=== PATIENT | female | born 1955 | race Hispanic/Latino ===

== ENCOUNTER 2016-10-12 17:55 | Observation (INO) | payer MEDICARE, MEDICAID ==
[~2016-10-12] VITALS: Ht 162.6 cm; Wt 79.6 kg
[~2016-10-12 17:55] MED LIST: AMITIZA24 MCG PO; GLYBURIDE5 MG PO; INVOKANA; JANUVIA100 MG PO; LEVEMIR1000 UNITS SC; LORAZEPAM0.5 MG PO; LYRICA25 MG PO; NAPROSYN500 MG PO; NORCO1 TA1 PO; OMEPRAZOLE20 M2 PO; PANTOPRAZOLE SO40 MG PO; PERCOCET1 TA4 PO; RESTASIS0.05 % OP; TRICOR145 MG PO; VICTOZA18 MG/3 ML SC; ZESTRIL/PRINIV2.5 MG PO; ZOFRAN ODT8 MG PO
[2016-10-12] MEDS ORDERED: GABAPENTIN100 MG PO (18:20)
[2016-10-12] MEDS ORDERED: FLUOXETINE10 M2 PO (18:21)
[2016-10-12] MEDS ORDERED: AMITIZA24 MCG PO (18:22)
[2016-10-12] MEDS ORDERED: ASPIRIN81 MG PO (18:22)
[2016-10-12] MEDS ORDERED: VENLAFAXINE H37.5 MG PO (18:23)
[2016-10-12] MEDS ORDERED: FENOFIBRATE145 MG PO (18:23)
[2016-10-12] MEDS ORDERED: BRILINTA90 MG PO (18:24)
[2016-10-12] MEDS ORDERED: PANTOPRAZOLE SO40 MG PO (18:24)
[2016-10-12] MEDS ORDERED: GLIMEPIRIDE2 MG PO (18:25)
[2016-10-12] MEDS ORDERED: LISINOPRIL5 MG PO (18:25)
[2016-10-12 19:14] LABS: HEMATOCRIT 35.6 % (37.0-47.0); HEMOGLOBIN 12.3 g/dl (12.0-16.0); IMMATURE GRANULOCYTES 0.4 % (0.0-1.0); MEAN CELL VOLUME 86.6 fL CALC (80.0-100.0); MEAN CORPUSCULAR HGB 29.9 pG CALC (26.0-32.0); MEAN CORPUSCULAR HGB CONC 34.6 g/L CALC (32.0-36.0); NEUT# 3.81 thou/uL (2.00-7.15); RED BLOOD COUNT 4.11 mill/uL (4.20-5.60); RED CELL DISTRI WIDTH 12.4 % (11.5-15.5)
[2016-10-12 19:27] LABS: ALBUMIN 4.3 g/dL (3.2-5.0); ALKALINE PHOSPHATASE 48 u/l (38-126); AMYLASE 85 u/l (30-110); ANION GAP 16 (6-22 (CALC)); BILIRUBIN, TOTAL 0.4 mg/dL (0.0-1.4); BUN 13 mg/dL (8-23); BUN/CREATININE RATIO 17 (12-20 (CALC)); CALCIUM 8.9 mg/dL (8.4-10.2); CARBON DIOXIDE 22 mmol/l (22-30); CHLORIDE 106 mmol/l (95-108); CREATININE 0.7 mg/dL (0.5-1.0); GFR > 60 ML/MIN (>=60 (CALC)); GFR FOR AFR.AMER. > 60 ML/MIN (>=60 (CALC)); GLUCOSE 261 mg/dL (82-115); LIPASE 295 u/l (23-300); POTASSIUM 4.1 mmol/l (3.5-5.1); SGOT/AST 32 u/l (9-36); SGPT/ALT 35 u/l (11-66); SODIUM 139 mmol/l (137-146); TOTAL PROTEIN 7.4 g/dL (6.3-8.2)
[2016-10-12 19:36] LABS: ACT PARTIAL THROMBO TIME 23.8 SECONDS (20.0-32.5); PROTHROMBIN TIME 10.8 SECONDS (9.0-12.5)
[2016-10-12 19:38] LABS: MYOGLOBIN 20 ng/mL (0 - 62)
[2016-10-12 19:57] LABS: URINE BILIRUBIN - DIPSTICK NEGATIVE (NEGATIVE); URINE BLOOD DIPSTICK NEGATIVE (NEGATIVE); URINE CLARITY CLEAR; URINE COLOR YELLOW; URINE GLUCOSE - DIPSTICK >=1000 mg/dL (NEGATIVE); URINE KETONE NEGATIVE (NEGATIVE); URINE LEUK ESTERASE NEGATIVE (NEGATIVE); URINE NITRITE - DIPSTICK NEGATIVE (Negative); URINE PROTEIN - DIPSTICK NEGATIVE (NEG-TRACE); URINE UROBILINOGEN - DIPSTICK 0.2 E.U./dL (0.2)
[2016-10-12 21:45] VITALS: BP 125/61
[2016-10-13 00:15] VITALS: BP 106/55
[2016-10-13 04:27] VITALS: BP 115/64
[2016-10-13 06:29] LABS: CHOLESTEROL HDL RATIO 6.5 (<4.4 (CALC))
[2016-10-13 08:08] VITALS: BP 126/54
[2016-10-13] MEDS ORDERED: METFORMIN500 MG PO (12:20)
[2016-10-13] MEDS ORDERED: LIPITOR20 MG PO (12:20)
[2016-10-13 12:59] VITALS: BP 149/79
== END 2016-10-13 13:44 | disposition home or self-care (01) ==
LOC: ENPENDDIS → ED 17:55 → ED-I 20:00 → ED 20:41 → MS2 20:42
PROVIDERS: Emergency Medicine; Internal Medicine; ADMIT Internal Medicine; ATTEND Internal Medicine
DX: R07.9 Chest pain, unspecified (principal); I11.9 Hypertensive heart disease without heart failure; E11.65 Type 2 diabetes mellitus with hyperglycemia; I25.10 Atherosclerotic heart disease of native coronary artery without angina pectoris; K21.9 Gastro-esophageal reflux disease without esophagitis; E78.5 Hyperlipidemia, unspecified; E11.40 Type 2 diabetes mellitus with diabetic neuropathy, unspecified; F32.9 Major depressive disorder, single episode, unspecified; F41.9 Anxiety disorder, unspecified; H53.8 Other visual disturbances; Z95.5 Presence of coronary angioplasty implant and graft; Z79.84 Long term (current) use of oral hypoglycemic drugs

== ENCOUNTER 2017-01-20 05:39 | Emergency (ER) | payer MEDICARE, MEDICAID ==
[~2017-01-20] VITALS: Ht 162.6 cm; Wt 80.0 kg
[~2017-01-20 05:39] MED LIST changes: +ASPIRIN81 MG PO; +BRILINTA90 MG PO; +FENOFIBRATE145 MG PO; +FLUOXETINE10 M2 PO; +GABAPENTIN100 MG PO; +GLIMEPIRIDE2 MG PO; +LIPITOR20 MG PO; +LISINOPRIL5 MG PO; +METFORMIN500 MG PO; +VENLAFAXINE H37.5 MG PO
[2017-01-20] MEDS ORDERED: JARDIANCE25 MG PO (05:55)
[2017-01-20] MEDS ORDERED: ORPHENADRINE100 MG PO (06:52)
[2017-01-20] MEDS ORDERED: PERCOCET 5/325M1 TAB PO (06:52)
[2017-01-20 07:13] VITALS: BP 133/85
== END 2017-01-20 07:45 | disposition home or self-care (01) ==
LOC: ED 05:39
DX: S46.912A Strain of unspecified muscle, fascia and tendon at shoulder and upper arm level, left arm, initial encounter (principal)

== ENCOUNTER 2017-03-19 06:58 | Emergency (ER) | payer MEDICARE, MEDICAID ==
[~2017-03-19] VITALS: Ht 162.6 cm; Wt 85.0 kg
[~2017-03-19 06:58] MED LIST changes: +JARDIANCE25 MG PO; +ORPHENADRINE100 MG PO; +PERCOCET 5/325M1 TAB PO
[2017-03-19] MEDS ORDERED: EC-NAPROSYN500 MG PO (07:26)
[2017-03-19] MEDS ORDERED: LORTAB 5/3255 MG PO (07:26)
[2017-03-19] MEDS ORDERED: FLEXERIL PO (07:26)
[2017-03-19] MEDS ORDERED: METFORMIN500 MG PO (07:37)
[2017-03-19 07:39] VITALS: BP 136/77
== END 2017-03-19 08:05 | disposition home or self-care (01) ==
LOC: ED 06:58
DX: M43.6 Torticollis (principal)

== ENCOUNTER 2017-06-09 21:42 | Emergency (ER) | payer MEDICARE, MEDICAID ==
[~2017-06-09] VITALS: Ht 162.6 cm; Wt 76.2 kg
[~2017-06-09 21:42] MED LIST changes: +EC-NAPROSYN500 MG PO; +FLEXERIL PO; +LORTAB 5/3255 MG PO
[2017-06-09 22:45] LABS: HEMATOCRIT 37.3 % (37.0-47.0); HEMOGLOBIN 12.5 g/dl (12.0-16.0); IMMATURE GRANULOCYTES 0.5 % (0.0-1.0); MEAN CELL VOLUME 90.1 fL CALC (80.0-100.0); MEAN CORPUSCULAR HGB 30.2 pG CALC (26.0-32.0); MEAN CORPUSCULAR HGB CONC 33.5 g/L CALC (32.0-36.0); NEUT# 6.63 thou/uL (2.00-7.15); RED BLOOD COUNT 4.14 mill/uL (4.20-5.60); RED CELL DISTRI WIDTH 12.5 % (11.5-15.5)
[2017-06-09 22:51] LABS: URINE BILIRUBIN - DIPSTICK NEGATIVE (NEGATIVE); URINE BLOOD DIPSTICK NEGATIVE (NEGATIVE); URINE COLOR YELLOW; URINE GLUCOSE - DIPSTICK >=1000 mg/dL (NEGATIVE); URINE KETONE NEGATIVE (NEGATIVE); URINE LEUK ESTERASE NEGATIVE (NEGATIVE); URINE NITRITE - DIPSTICK NEGATIVE (Negative); URINE PROTEIN - DIPSTICK NEGATIVE (NEG-TRACE); URINE SPECIFIC GRAVITY <=1.005; URINE UROBILINOGEN - DIPSTICK 0.2 E.U./dL (0.2)
[2017-06-09 22:52] LABS: URINE CLARITY SL CLOUDY
[2017-06-09 23:03] LABS: ALBUMIN 4.5 g/dL (3.2-5.0); ALKALINE PHOSPHATASE 60 u/l (38-126); ANION GAP 18 (6-22 (CALC)); BILIRUBIN, TOTAL 0.4 mg/dL (0.0-1.4); BUN 22 mg/dL (8-23); BUN/CREATININE RATIO 25 (12-20 (CALC)); CARBON DIOXIDE 23 mmol/l (22-30); CHLORIDE 100 mmol/l (95-108); CREATININE 0.9 mg/dL (0.5-1.0); GFR > 60 ML/MIN (>=60 (CALC)); GFR FOR AFR.AMER. > 60 ML/MIN (>=60 (CALC)); POTASSIUM 4.3 mmol/l (3.5-5.1); SGOT/AST 39 u/l (9-36); SGPT/ALT 28 u/l (11-66); SODIUM 137 mmol/l (137-146); TOTAL PROTEIN 7.2 g/dL (6.3-8.2)
[2017-06-10 00:28] VITALS: BP 133/62
== END 2017-06-10 00:27 | disposition home or self-care (01) ==
LOC: ED 21:42
PROVIDERS: Emergency Medicine
DX: E11.65 Type 2 diabetes mellitus with hyperglycemia (principal); I10 Essential (primary) hypertension; E78.00 Pure hypercholesterolemia, unspecified

== ENCOUNTER 2017-07-30 03:34 | Observation (INO) | payer MEDICARE, MEDICAID ==
[~2017-07-30] VITALS: Ht 162.6 cm; Wt 76.4 kg
--- NOTE | 2017-07-30 03:35 | NUR ---
PATIENT IMMEDIATELY TO ROOM 6 VIA WHEELCHAIR. UNDRESSED INTO A GOWN. PLACED ON MONITOR. AWAITING MD YI.
--- NOTE | 2017-07-30 03:36 | NUR ---
PT. TO ROOM 6 VIA W/C AND C/O LEFT SIDED CP THAT STARTED APPROX. 90 MIN. AGO. SKIN WARM AND DRY TO TOUCH, COLOR WNL, RESP. EVEN AND UNLABORED. BILATERAL LUNG BOLAÑOS ARE CTA, NO EDEMA NOTED TO BLE.
[2017-07-30] MEDS ORDERED: LEVEMIR100 UNIT/M SC (04:13)
--- NOTE | 2017-07-30 04:24 | NUR ---
IV PAIN MED, PO ASA, AND SL NITROGLYCERIN GIVEN PER MD ORDER.
--- NOTE | 2017-07-30 04:25 | NUR ---
IN ROOM TO DISCUSS CLINICAL FINDINGS WITH PT. VERBALIZED UNDERSTANDING.
--- NOTE | 2017-07-30 04:39 | NUR ---
D/C instructions given with verbalization of understanding. Pt. discharged home in stable condition. PT. INSTRUCTED TO FOLLOW UP WITH RANDY CASTREJON, VERBALIZED UNDERSTANDING. PT. DISCHARGED VIA AMBULATORY TO [facility] C/O.
[2017-07-30 05:00] LABS: HEMATOCRIT 37.2 % (37.0-47.0); HEMOGLOBIN 12.6 g/dl (12.0-16.0); IMMATURE GRANULOCYTES 0.2 % (0.0-1.0); MEAN CELL VOLUME 89.4 fL CALC (80.0-100.0); MEAN CORPUSCULAR HGB 30.3 pG CALC (26.0-32.0); MEAN CORPUSCULAR HGB CONC 33.9 g/L CALC (32.0-36.0); NEUT# 3.24 thou/uL (2.00-7.15); RED BLOOD COUNT 4.16 mill/uL (4.20-5.60); RED CELL DISTRI WIDTH 12.6 % (11.5-15.5)
--- NOTE | 2017-07-30 05:00 | NUR ---
PT. STATES HER CP IS NOW REDUCED TO A 4 ON A SCALE OF 1-10.
[2017-07-30 05:16] LABS: ALBUMIN 4.3 g/dL (3.2-5.0); ALKALINE PHOSPHATASE 64 u/l (38-126); AMYLASE 68 u/l (30-110); ANION GAP 22 (6-22 (CALC)); BILIRUBIN, TOTAL 0.4 mg/dL (0.0-1.4); BUN 18 mg/dL (8-23); BUN/CREATININE RATIO 16 (12-20 (CALC)); CARBON DIOXIDE 23 mmol/l (22-30); CHLORIDE 98 mmol/l (95-108); CREATININE 1.2 mg/dL (0.5-1.0); GFR 46 ML/MIN (>=60 (CALC)); GFR FOR AFR.AMER. 55 ML/MIN (>=60 (CALC)); LIPASE 196 u/l (23-300); POTASSIUM 4.4 mmol/l (3.5-5.1); SGOT/AST 34 u/l (9-36); SGPT/ALT 43 u/l (11-66); SODIUM 139 mmol/l (137-146); TOTAL PROTEIN 7.5 g/dL (6.3-8.2)
[2017-07-30 05:17] LABS: ACT PARTIAL THROMBO TIME 25.5 SECONDS (20.0-32.5); INTERNATIONAL NORMALIZED RATIO 1.1 RATIO (0.7-1.3); PROTHROMBIN TIME 11.9 SECONDS (9.0-12.5)
[2017-07-30 05:28] LABS: MYOGLOBIN 30 ng/mL (0 - 62)
--- NOTE | 2017-07-30 05:30 | NUR ---
RESTING QUIETLY ON STRETCHER, AT SIDE, NO C/O PAIN OR DISCOMFORT OFFERED.
--- NOTE | 2017-07-30 06:09 | NUR ---
IN ROOM TO DISCUSS CLINICAL FINDINGS WITH PT. VERBALIZED UNDERSTANDING.
[2017-07-30 06:12] LABS: URINE BILIRUBIN - DIPSTICK NEGATIVE (NEGATIVE); URINE BLOOD DIPSTICK NEGATIVE (NEGATIVE); URINE CLARITY SL CLOUDY; URINE COLOR YELLOW; URINE GLUCOSE - DIPSTICK >=1000 mg/dL (NEGATIVE); URINE KETONE NEGATIVE (NEGATIVE); URINE LEUK ESTERASE SMALL (NEGATIVE); URINE NITRITE - DIPSTICK NEGATIVE (Negative); URINE PROTEIN - DIPSTICK NEGATIVE (NEG-TRACE); URINE UROBILINOGEN - DIPSTICK 0.2 E.U./dL (0.2)
[2017-07-30 06:14] LABS: URINE RBC 0-2 RBC/hpf (0-5); URINE SQUAMOUS EPITHELIAL CELL MODERATE EPI/hpf (0-FEW)
[2017-07-30 06:15] LABS: URINE BACTERIA FEW hpf; URINE MUCUS FEW hpf (NONE-FEW)
--- NOTE | 2017-07-30 06:24 | NUR ---
Admission Note Report Given to: ELIANE JAQUEZ Transported by: Wheelchair X Stretcher Transported with: X Nurse Transporter X Patent IV X O2 X Learn To Swim Instructor
--- NOTE | 2017-07-30 06:35 | NUR ---
PT. TAKEN TO MS VIA STRETCHER, NO C/O.
[2017-07-30 06:40] VITALS: BP 145/81
--- NOTE | 2017-07-30 07:27 | NUR ---
REPORT RECEIVED FROM LEONID DEL RIO. PT SITTING UPRIGHT IN BED. REPORTS LEFT UPPER CHEST PAIN, RADIATING TO BACK, 5 ON SCALE OF 0-10. PAIN SHARP IN NATURE, MUCH RELIEVED SINCE ARRIVAL TO ED. PLAN OF CARE DISCUSSED. REPORTING OF CONCERNS ENCOURAGED. CALL LIGHT REVIEWED AND IN REACH. PT STATES UNDERSTANDING.
--- NOTE | 2017-07-30 08:18 | NUR ---
PT REPORTS CHEST PAIN NOW DISSIPATED AND ONLY RETURNS WITH MOVEMENT.
[2017-07-30 11:30] VITALS: BP 134/76
[2017-07-30 12:35] VITALS: BP 136/79
--- NOTE | 2017-07-30 12:41 | NUR ---
PT REPORTS SEVERE, SHARP LEFT UPPER CHEST PAIN, 9 ON SCALE OF 0-10. PT SITTING UPRIGHT IN BED. NO SOB. EATING LUNCH AND TALKING WITH VISITOR. EKG OBTAINED, NO CHANGE FROM PREVIOUS. DR. MONTERROSO NOTIFIED. ORDER FOR D-DIMER AND NITRO AND MORPHINE PRN. VSS. NO SOB. NITRO SL ADMINISTERED. PT REPORTS RELIEF OF PAIN WITHIN 5 MINUTES OF ADMINISTRATION. WILL CONTINUE TO MONITOR.
[2017-07-30 16:15] VITALS: BP 122/71
--- NOTE | 2017-07-30 17:19 | NUR ---
PT DENIES CHEST PAIN. REQUESTING SHOWER AT THIS TIME. PT ASSISTED WITH SHOWER SET UP.
[2017-07-30 18:01] LABS: CHOLESTEROL HDL RATIO 5.6 (<4.4 (CALC))
--- NOTE | 2017-07-30 18:50 | NUR ---
RECEIVED CHANGE OF SHIFT REPORT FROM LEONID TRIPLETT. PATIENT ALERT AND ORIENTED AND LYING IN BED. NO VOICED COMPLAINT. NO APPARENT ACUTE DISTRESS NOTED. WILL CONTINUE TO MONITOR.
[2017-07-30 18:55] VITALS: BP 117/75
[2017-07-31] VITALS (7 sets, daily range): BP systolic 109–140; BP diastolic 55–83
--- NOTE | 2017-07-31 | NUR ---
PATIENT RESTING QUIETLY WITH EYES CLOSED AND APPEARS TO BE ASLEEP. RESP EVEN AND NON-LABORED. NO APPARENT ACUTE DISTRESS NOTED. WILL CONTINUE TO MONITOR.
--- NOTE | 2017-07-31 04:00 | NUR ---
PATIENT SLEPT WELL DURING THE NIGHT. NO APPARENT ACUTE CHANGES NOTED IN PT'S CONDITION.
--- NOTE | 2017-07-31 07:07 | NUR ---
REPORT RECEIVED FROM LEONID MORALES. PT SITTING UPRIGHT IN BED. PT DENIES CHEST PAIN. REPORTS "THAT WAS THE BEST NIGHT I'VE EVER HAD." REPORTING OF CONCENRS ENCOURAGED. CALL LIGHT REVIEWED AND IN REACH. PT STATES UNDERSTANDING.
--- NOTE | 2017-07-31 09:22 | NUR ---
PT TO CT DEPARTMENT AT THIS TIME.
--- NOTE | 2017-07-31 12:05 | NUR ---
PT REPORTS SEVERE CHEST PAIN. 9 ON PAIN SCALE, WHICH STARTED AFTER COMPLETING BREAKFAST MEAL. VSS. NO SOB. NITRO SL ADMINISTERED. PT REPORTS RELIEF OF PAIN TO 5 ON PAIN SCALE WITHIN 5 MINUTES. PT REQUESTS COLA TO ASSIST WITH BELCHING. AFTER COLA PT REPORTS COMPLETE RELIEF OF PAIN.
--- NOTE | 2017-07-31 18:45 | NUR ---
RECEIVED CHANGE OF SHIFT REPORT FROM LEONID TRIPLETT. PATIENT ALERT AND ORIENTED AND LYING IN BED. VISITOR AT BEDSIDE. NO VOICED COMPLAINTS AT THIS TIME. NO APPARENT ACUTE DISTRESS NOTED. WILL CONTINUE TO MONITOR.
--- NOTE | 2017-07-31 19:04 | NUR ---
DR MONTERROSO SEEING PATIENT IN ROOM AT THIS TIME.
--- NOTE | 2017-07-31 20:30 | NUR ---
Discharge instructions given. Patient verbalizes understanding of same. Discharged in stable condition via wheelchair to Home with spouse. vital signs 97.0-69-18 BP 114/70. All belongings sent with patient.
== END 2017-07-31 20:30 | disposition home or self-care (01) ==
LOC: ED 03:34 → ED-I 05:30 → ED 06:24 → MS2 06:25
PROVIDERS: Emergency Medicine; ADMIT Hospitalist; ATTEND Hospitalist
DX: R07.89 Other chest pain (principal); I25.10 Atherosclerotic heart disease of native coronary artery without angina pectoris; I10 Essential (primary) hypertension; E11.65 Type 2 diabetes mellitus with hyperglycemia; K21.9 Gastro-esophageal reflux disease without esophagitis; E78.5 Hyperlipidemia, unspecified; N17.9 Acute kidney failure, unspecified; R82.71 Bacteriuria; Z95.5 Presence of coronary angioplasty implant and graft; Z79.4 Long term (current) use of insulin
CPT/HCPCS: Q9967; S0164

== ENCOUNTER 2018-06-07 12:32 | Emergency (ER) | payer MEDICARE, MEDICAID ==
[~2018-06-07] VITALS: Ht 162.6 cm; Wt 79.1 kg
[~2018-06-07 12:32] MED LIST changes: +LEVEMIR100 UNIT/M SC
[2018-06-07 13:17] LABS: HEMATOCRIT 37.8 % (37.0-47.0); HEMOGLOBIN 12.8 g/dl (12.0-16.0); IMMATURE GRANULOCYTES 0.4 % (0.0-5.0); MEAN CELL VOLUME 88.7 fL CALC (80.0-100.0); MEAN CORPUSCULAR HGB CONC 33.9 g/L CALC (32.0-36.0); NEUT# 4.62 thou/uL (2.00-7.15); RED BLOOD COUNT 4.26 mill/uL (4.20-5.60); RED CELL DISTRI WIDTH 13.4 % (11.5-15.5)
[2018-06-07 13:35] LABS: ALBUMIN 4.3 g/dL (3.2-5.0); ALKALINE PHOSPHATASE 55 u/l (38-126); ANION GAP 14 (6-22 (CALC)); BILIRUBIN, TOTAL 0.4 mg/dL (0.0-1.4); BUN 13 mg/dL (8-23); BUN/CREATININE RATIO 17 (12-20 (CALC)); CARBON DIOXIDE 24 mmol/l (22-30); CHLORIDE 107 mmol/l (95-108); CREATININE 0.8 mg/dL (0.5-1.0); GFR > 60 ML/MIN (>=60 (CALC)); GFR FOR AFR.AMER. > 60 ML/MIN (>=60 (CALC)); LIPASE 150 u/l (23-300); SGOT/AST 23 u/l (9-36); SODIUM 141 mmol/l (137-146); TOTAL PROTEIN 7.3 g/dL (6.3-8.2)
[2018-06-07] MEDS ORDERED: ULTRAM50 M1 PO (14:19)
[2018-06-07] MEDS ORDERED: ZITHROMAX250 MG PO (14:19)
[2018-06-07] MEDS ORDERED: TESSALON PER100 MG PO (14:19)
[2018-06-07 14:25] VITALS: BP 123/60
[2018-06-07] MEDS ORDERED: PROVENTIL108 MCG/AC IN (14:34)
== END 2018-06-07 14:40 | disposition home or self-care (01) ==
LOC: ED 12:32
PROVIDERS: Emergency Medicine
DX: J40 Bronchitis, not specified as acute or chronic (principal); E11.9 Type 2 diabetes mellitus without complications; I10 Essential (primary) hypertension; K21.9 Gastro-esophageal reflux disease without esophagitis; Z95.5 Presence of coronary angioplasty implant and graft; R07.9 Chest pain, unspecified

== ENCOUNTER 2018-06-20 13:34 | Emergency (ER) | payer MEDICARE, MEDICAID ==
[~2018-06-20] VITALS: Ht 162.6 cm; Wt 70.0 kg
[~2018-06-20 13:34] MED LIST changes: +PROVENTIL108 MCG/AC IN; +TESSALON PER100 MG PO; +ULTRAM50 M1 PO; +ZITHROMAX250 MG PO
[2018-06-20 16:44] LABS: HEMATOCRIT 41.9 % (37.0-47.0); HEMOGLOBIN 13.8 g/dl (12.0-16.0); IMMATURE GRANULOCYTES 0.2 % (0.0-5.0); MEAN CELL VOLUME 90.1 fL CALC (80.0-100.0); MEAN CORPUSCULAR HGB 29.7 pG CALC (26.0-32.0); MEAN CORPUSCULAR HGB CONC 32.9 g/L CALC (32.0-36.0); NEUT# 4.69 thou/uL (2.00-7.15); RED BLOOD COUNT 4.65 mill/uL (4.20-5.60); RED CELL DISTRI WIDTH 13.1 % (11.5-15.5)
[2018-06-20] MEDS ORDERED: TRULICITY1.5 MG/0.5 IM (16:47)
[2018-06-20] MEDS ORDERED: ATORVASTATIN CA40 MG PO (16:52)
[2018-06-20] MEDS ORDERED: BUT/APAP/CAF PO (16:54)
[2018-06-20] MEDS ORDERED: MELOXICAM7.5 MG PO (16:54)
[2018-06-20] MEDS ORDERED: LORTAB 5/3255 MG PO (16:55)
[2018-06-20] MEDS ORDERED: CYCLOBENZAPR5 MG PO (16:55)
[2018-06-20] MEDS ORDERED: ZOLPIDEM5 M1 PO (16:55)
[2018-06-20 17:02] LABS: ALBUMIN 4.8 g/dL (3.2-5.0); ALKALINE PHOSPHATASE 43 u/l (38-126); ANION GAP 17 (6-22 (CALC)); BILIRUBIN, TOTAL 0.8 mg/dL (0.0-1.4); BUN 25 mg/dL (8-23); BUN/CREATININE RATIO 30 (12-20 (CALC)); CARBON DIOXIDE 27 mmol/l (22-30); CHLORIDE 101 mmol/l (95-108); CREATININE 0.8 mg/dL (0.5-1.0); GFR > 60 ML/MIN (>=60 (CALC)); GFR FOR AFR.AMER. > 60 ML/MIN (>=60 (CALC)); LIPASE 105 u/l (23-300); POTASSIUM 3.8 mmol/l (3.5-5.1); SGOT/AST 38 u/l (9-36); SODIUM 141 mmol/l (137-146)
[2018-06-20] MEDS ORDERED: AMOXICILLIN875 MG PO (18:22)
[2018-06-20] MEDS ORDERED: ZOFRAN4 MG/TAB PO (18:22)
[2018-06-20 18:35] VITALS: BP 111/56
== END 2018-06-20 18:35 | disposition home or self-care (01) ==
LOC: ED 13:34
DX: R11.2 Nausea with vomiting, unspecified (principal); J02.9 Acute pharyngitis, unspecified; I10 Essential (primary) hypertension; E11.9 Type 2 diabetes mellitus without complications; Z79.84 Long term (current) use of oral hypoglycemic drugs; Z95.5 Presence of coronary angioplasty implant and graft

== ENCOUNTER → 2018-07-12 | Outpatient (REF) | payer MEDICARE, MEDICAID ==
[~2018-07-12] MED LIST changes: +AMOXICILLIN875 MG PO; +ATORVASTATIN CA40 MG PO; +BUT/APAP/CAF PO; +CYCLOBENZAPR5 MG PO; +MELOXICAM7.5 MG PO; +TRULICITY1.5 MG/0.5 IM; +ZOFRAN4 MG/TAB PO; +ZOLPIDEM5 M1 PO
[2018-07-12 12:42] LABS: URINE BILIRUBIN - DIPSTICK NEGATIVE (NEGATIVE); URINE BLOOD DIPSTICK TRACE-LYSED (NEGATIVE); URINE COLOR YELLOW; URINE GLUCOSE - DIPSTICK >=1000 mg/dL (NEGATIVE); URINE KETONE NEGATIVE (NEGATIVE); URINE LEUK ESTERASE SMALL (Negative); URINE NITRITE - DIPSTICK NEGATIVE (Negative); URINE PROTEIN - DIPSTICK NEGATIVE (NEG-TRACE); URINE SPECIFIC GRAVITY 1.025; URINE UROBILINOGEN - DIPSTICK 0.2 E.U./dL (0.2)
[2018-07-12 12:43] LABS: URINE CLARITY SL CLOUDY
[2018-07-12 12:52] LABS: URINE BACTERIA FEW hpf
[2018-07-12 12:53] LABS: URINE WBC >100 WBC/hpf (0-5)
== END | disposition home or self-care (01) ==
LOC: LABSPEC 12:14 → STRESS 12:14 → NUCMED 16:30
PROVIDERS: ATTEND Nurse Practitioner
DX: N39.41 Urge incontinence (principal); B96.20 Unspecified Escherichia coli [E. coli] as the cause of diseases classified elsewhere; I20.9 Angina pectoris, unspecified

== ENCOUNTER 2019-02-26 14:25 | Emergency (ER) | payer MEDICARE, MEDICAID ==
[~2019-02-26] VITALS: Ht 162.6 cm; Wt 80.0 kg
[~2019-02-26 14:25] MED LIST changes: +PROTONIX40 MG PO
[2019-02-26] MEDS ORDERED: LISINOPRIL2.5 MG PO (14:47)
[2019-02-26] MEDS ORDERED: TRESIBA FL200 UNIT/M SC (14:48)
[2019-02-26] MEDS ORDERED: DULOXETINE HCL30 MG PO (14:49)
[2019-02-26] MEDS ORDERED: METFORMIN500 MG PO (14:50)
[2019-02-26 15:56] LABS: URINE BILIRUBIN - DIPSTICK NEGATIVE (NEGATIVE); URINE BLOOD DIPSTICK NEGATIVE (NEGATIVE); URINE COLOR YELLOW; URINE GLUCOSE - DIPSTICK >=1000 mg/dL (NEGATIVE); URINE KETONE NEGATIVE (NEGATIVE); URINE LEUK ESTERASE NEGATIVE (Negative); URINE NITRITE - DIPSTICK NEGATIVE (Negative); URINE PROTEIN - DIPSTICK NEGATIVE (NEG-TRACE); URINE SPECIFIC GRAVITY 1.015
[2019-02-26 15:57] LABS: URINE CLARITY CLEAR
[2019-02-26 15:58] LABS: BARBITURATES NEGATIVE (NEGATIVE); COCAINE NEGATIVE (NEGATIVE); METHADONE NEGATIVE (NEGATIVE); OXCYCODONE NEGATIVE (NEGATIVE); TETRAHYDROCANNABIONOL NEGATIVE (NEGATIVE); TRICYLIC ANTIDEPRESSANTS NEGATIVE (NEGATIVE)
[2019-02-26] MEDS ORDERED: NAPROXEN375 MG PO (16:14)
[2019-02-26] MEDS ORDERED: PREDNISONE10 MG PO (16:14)
[2019-02-26] MEDS ORDERED: FLEXERIL5 M1 PO (16:14)
[2019-02-26 16:25] VITALS: BP 129/74
== END 2019-02-26 16:25 | disposition home or self-care (01) ==
LOC: ED 14:25
DX: M54.5 Low back pain (principal); R25.2 Cramp and spasm; I10 Essential (primary) hypertension; E11.9 Type 2 diabetes mellitus without complications; Z79.4 Long term (current) use of insulin

== ENCOUNTER 2019-04-19 05:26 | Emergency (ER) | payer MEDICARE, MEDICAID ==
[~2019-04-19] VITALS: Ht 162.6 cm; Wt 75.0 kg
[~2019-04-19 05:26] MED LIST changes: +DULOXETINE HCL30 MG PO; +FLEXERIL5 M1 PO; +LISINOPRIL2.5 MG PO; +NAPROXEN375 MG PO; +PREDNISONE10 MG PO; +TRESIBA FL200 UNIT/M SC
[2019-04-19] MEDS ORDERED: VOLTAREN - GENE75 MG PO (07:02)
[2019-04-19] MEDS ORDERED: ORPHENADRINE100 MG PO (07:02)
[2019-04-19 08:05] VITALS: BP 124/71
== END 2019-04-19 08:45 | disposition home or self-care (01) ==
LOC: ED 05:26
DX: S16.1XXA Strain of muscle, fascia and tendon at neck level, initial encounter (principal); E11.9 Type 2 diabetes mellitus without complications; I10 Essential (primary) hypertension; X50.3XXA Overexertion from repetitive movements, initial encounter; Y93.89 Activity, other specified; Z95.5 Presence of coronary angioplasty implant and graft; Z79.4 Long term (current) use of insulin

== ENCOUNTER 2019-05-17 15:13 | Observation (INO) | payer MEDICARE, MEDICAID ==
[~2019-05-17] VITALS: Ht 162.6 cm; Wt 74.6 kg
[~2019-05-17 15:13] MED LIST changes: +VOLTAREN - GENE75 MG PO
[2019-05-17 16:40] LABS: ETHYL ALCOHOL 0 mg/dl (0-30); LIPASE 220 u/l (23-300)
[2019-05-17 16:43] LABS: ACT PARTIAL THROMBO TIME 25.3 SECONDS (20.0-32.5); PROTHROMBIN TIME 10.5 SECONDS (9.0-12.5)
[2019-05-17 17:18] LABS: HEMATOCRIT 39.9 % (37.0-47.0); HEMOGLOBIN 13.5 g/dl (12.0-16.0); IMMATURE GRANULOCYTES 0.3 % (0.0-5.0); MEAN CELL VOLUME 86.6 fL CALC (80.0-100.0); MEAN CORPUSCULAR HGB 29.3 pG CALC (26.0-32.0); MEAN CORPUSCULAR HGB CONC 33.8 g/L CALC (32.0-36.0); NEUT# 4.42 thou/uL (2.00-7.15); RED BLOOD COUNT 4.61 mill/uL (4.20-5.60); RED CELL DISTRI WIDTH 13.1 % (11.5-15.5)
[2019-05-17 17:24] LABS: ALBUMIN 4.3 g/dL (3.2-5.0); ALKALINE PHOSPHATASE 67 u/l (38-126); ANION GAP 14 (6-22 (CALC)); BILIRUBIN, TOTAL 0.5 mg/dL (0.0-1.4); BUN 14 mg/dL (8-23); BUN/CREATININE RATIO 25 (12-20 (CALC)); CARBON DIOXIDE 24 mmol/l (22-30); CHLORIDE 106 mmol/l (95-108); CREATININE 0.6 mg/dL (0.5-1.0); GFR > 60 ML/MIN (>=60 (CALC)); GFR FOR AFR.AMER. > 60 ML/MIN (>=60 (CALC)); POTASSIUM 4.1 mmol/l (3.5-5.1); SGOT/AST 27 u/l (9-36); SODIUM 140 mmol/l (137-146); TOTAL PROTEIN 7.3 g/dL (6.3-8.2)
[2019-05-17 17:28] LABS: BARBITURATES NEGATIVE (NEGATIVE); COCAINE NEGATIVE (NEGATIVE); METHADONE NEGATIVE (NEGATIVE); OXCYCODONE NEGATIVE (NEGATIVE); TETRAHYDROCANNABIONOL NEGATIVE (NEGATIVE); TRICYLIC ANTIDEPRESSANTS NEGATIVE (NEGATIVE)
[2019-05-17 20:20] VITALS: BP 115/57
[2019-05-18 00:10] VITALS: BP 91/45
[2019-05-18 03:38] VITALS: BP 118/59
[2019-05-18 10:45] VITALS: BP 108/62
[2019-05-18] MEDS ORDERED: FIORICET PO (14:54)
== END 2019-05-18 17:56 | disposition home or self-care (01) ==
LOC: ED 15:13 → ED-I 17:45 → ED 17:56 → ED-I 17:57 → MS2 17:57
PROVIDERS: ADMIT Internal Medicine; ATTEND Internal Medicine
DX: R07.89 Other chest pain (principal); G43.909 Migraine, unspecified, not intractable, without status migrainosus; F32.9 Major depressive disorder, single episode, unspecified; I10 Essential (primary) hypertension; I25.10 Atherosclerotic heart disease of native coronary artery without angina pectoris; E11.40 Type 2 diabetes mellitus with diabetic neuropathy, unspecified; E78.5 Hyperlipidemia, unspecified; E11.69 Type 2 diabetes mellitus with other specified complication; Z79.4 Long term (current) use of insulin; Z95.5 Presence of coronary angioplasty implant and graft; Z63.8 Other specified problems related to primary support group
CPT/HCPCS: G0378

== ENCOUNTER 2019-06-24 | Emergency (ER) | payer MEDICARE, MEDICAID ==
[~2019-06-24] MED LIST changes: +FIORICET PO
[2019-06-24] MEDS ORDERED: TESSALON PERLE100 MG PO ×2 (13:30→14:02)
[2019-06-24] MEDS ORDERED: VENTOLIN HFA IN (13:30)
== END 2019-06-24 13:48 | disposition home or self-care (01) ==
DX: R05 Cough (principal); R10.31 Right lower quadrant pain; E11.9 Type 2 diabetes mellitus without complications; I10 Essential (primary) hypertension; Z79.4 Long term (current) use of insulin

== ENCOUNTER 2019-09-30 20:21 | Observation (INO) | payer MEDICARE, MEDICAID ==
[~2019-09-30] VITALS: Ht 162.6 cm; Wt 78.2 kg
[~2019-09-30 20:21] MED LIST changes: +TESSALON PERLE100 MG PO; +VENTOLIN HFA IN
--- NOTE | 2019-09-30 20:35 | NUR ---
PATIENT TO ROOM 9 FOR BEDSIDE TRIAGE. AWAITING MD YI.
[2019-09-30 20:44] LABS: HEMATOCRIT 38.4 % (37.0-47.0); IMMATURE GRANULOCYTES 0.4 % (0.0-5.0); MEAN CELL VOLUME 86.3 fL CALC (80.0-100.0); MEAN CORPUSCULAR HGB 29.2 pG CALC (26.0-32.0); MEAN CORPUSCULAR HGB CONC 33.9 g/dL CAL (32.0-36.0); NEUT# 4.58 thou/uL (2.00-7.15); RED BLOOD COUNT 4.45 mill/uL (4.20-5.60); RED CELL DISTRI WIDTH 13.2 % (11.5-15.5)
--- NOTE | 2019-09-30 20:55 | NUR ---
RESTING QUIETLY AT THIS TIME, C/O PAIN, PATIENT MEDICATED PER PHYSICIAN ORDER, NO S/S OF DISTRESS NOTED, RESPIRATIONS EVEN AND UNLABORED, AWAITING RADIOLOGY.
[2019-09-30 21:16] LABS: ALBUMIN 4.2 g/dL (3.2-5.0); ALKALINE PHOSPHATASE 64 u/l (38-126); AMYLASE 107 u/l (30-110); ANION GAP 14 (6-22 (CALC)); BILIRUBIN, TOTAL 0.4 mg/dL (0.0-1.4); BUN 11 mg/dL (8-23); BUN/CREATININE RATIO 18 (12-20 (CALC)); CHLORIDE 106 mmol/l (95-108); CREATININE 0.6 mg/dL (0.5-1.0); GFR > 60 ML/MIN (>=60 (CALC)); GFR FOR AFR.AMER. > 60 ML/MIN (>=60 (CALC)); LIPASE 166 u/l (23-300); POTASSIUM 3.7 mmol/l (3.5-5.1); SGOT/AST 32 u/l (9-36); SODIUM 138 mmol/l (137-146); TOTAL PROTEIN 7.4 g/dL (6.3-8.2)
[2019-09-30 21:17] LABS: D-DIMER 0.17 mg/L (0.19-0.60); PROTHROMBIN TIME 10.3 SECONDS (9.0-12.5)
[2019-09-30 21:20] LABS: CARBON DIOXIDE 22 mmol/l (22-30)
[2019-09-30 21:29] LABS: MYOGLOBIN 19 ng/mL (0 - 62)
--- NOTE | 2019-09-30 22:11 | NUR ---
PATIENT PLACED ON PORTABLE ICE CREAM MAKER FOR INPATIENT STAY. PATIENT AAOX3, AMBULATORY WITHOUT ASSITANCE, RESPIRATIONS EVEN AND UNLABORED.
--- NOTE | 2019-09-30 22:13 | NUR ---
ATTEMPTED TO GIVE REPORT TO INPATIENT NURSE, UNAVAILABLE AT THIS TIME.
--- NOTE | 2019-09-30 22:31 | NUR ---
HAND OFF REPORT GIVEN TO LEONID HOLM.
[2019-09-30 22:40] VITALS: BP 124/75
--- NOTE | 2019-09-30 22:43 | NUR ---
PATIENT TRANSPORTED TO INPATIENT FLOOR BY WHEELCHAIR ON PORTABLE PERCH MACHINE INSPECTOR.
--- NOTE | 2019-09-30 22:43 | NUR ---
RECEIVED REPORT FROM NURSE DAMON PATIENT TRANSPORTED VIA WHEELCHAIR, AMBULATORY, STILL HAS CHEST PAIN 08/02 BUT STATED WAS EASING UP, V/S TAKEN AND RECORDED, PATIENT ORIENTED TO ROOM AND CALL LIGHT SYSTEM.
--- NOTE | 2019-10-01 00:51 | NUR ---
PATIENT VOMITED SMALL AMOUNT FOOD CONTENT, V/S TAKEN FOLLOWS BP138/77 P97 R 19 POX 98% ON ROOM AIR, DENIES CHEST PAIN, 2ND TROPONIN RESULT NORMAL, CALLED DR. ESTRADA WITH ORDERS MADE.
[2019-10-01 00:53] VITALS: BP 138/77
[2019-10-01 03:30] VITALS: BP 100/63
--- NOTE | 2019-10-01 04:00 | NUR ---
PATIENT APPEARS TO BE SLEEPING WITH EYES CLOSED, NO DISCOMFORTS NOTED AT THIS TIME, BREATHING EVEN AND UNLABORED.
--- NOTE | 2019-10-01 07:40 | NUR ---
RECEIVED REPORT FROM LEONID LONG. PT SLEEPING IN SEMI FOWLERS POSITION UPON ENTERING ROOM. RESPIATIONS ARE EVEN AND UNLABORED WITH NO SIGNS OF DISTRESS. NO SIGNS OF ANY PAIN OR DISCOMFORTS. ALL SAFETY PRECAUTIONS IN PLACE WITH CALL LIGHT IN REACH. WILL CONTIUE TO MONITOR,
[2019-10-01 08:35] VITALS: BP 117/67
--- NOTE | 2019-10-01 08:40 | NUR ---
PT RESTING IN SEMI FOWLERS POSITION EATING BREAKFAST WHEN ENTERING ROOM. INTRODUCED SELF TO PT AND DISCUSSED POC. ASSESSMENT AND VITALS COMPLETED AT THIS TIME. BP 117/67. HR 79.O2 98% ON ROOM AIR.LUNG SOUNDS ARE CLEAR. RESPIRATIONS ARE EVEN AND UNLABORED AT THIS TIME, PT DENIES ANY SOB.HEART RHYTHM IS NORMAL, TELE IN PLACE.PT DENIES ANY CHEST PAIN. BOWEL SOUNDS ARE ACTIVE IN ALL QUADRANTS. RADIAL AND PEDAL PULSES ARE STRONG WITH NORMAL CAPILLARY REFILL. NO EDEMA IN ANY EXTREMITIES. REASSESSMENT OF GLUCOSE RESULTING IN 92, LEVEMIR HELD. ENCOURAGED PT EAT TO ASSISST WITH GLUCOSE. PT DENIES ANY PAIN OR DISCOMFORTS AT THIS TIME. ALL SAFETY PRECAUTIONS IN PLACE WITH CALL LIGHT IN REACH.WILL CONTIUNE TO MONITOR.
[2019-10-01 11:16] VITALS: BP 98/50
--- NOTE | 2019-10-01 12:09 | NUR ---
PT RESTING IN SEMI FOWLERS POSITION EATING LUNCH.RESPIRATIONS ARE EVEN AND UNLABORED AT THIS TIME.TELE IN PLACE.PT DENIES ANY PAIN OR DISCOMFORTS.DISCHARGE INSTRUCTIONS IN PLACE AT THIS TIME. ALL SAFTEY PRECAUTIONS REMAIN IN PLACE. WILL CONTIUE TO MONITOR.
--- NOTE | 2019-10-01 12:45 | NUR ---
DISCHARGE INSTRUCTIONS AND EDUACTION EXPAINED TO PT AT THIS TIME.PT VERBALIZED UNDERSTANDING. IV REMOVED WITH CATHATER STILL INTACT. PT TOLERATED WELL. AWAITING FOR TRANSPORTATION.ALL SAFTEY PRECAUTIONS IN PLACE WITH CALL LIGHT IN REACH. WILL CONIUE TO MONITOR.
--- NOTE | 2019-10-01 13:09 | NUR ---
Discharge instructions given. Patient verbalizes understanding of same. Discharged in stable condition via Wheelchair to Home with family. All belongings sent with pt. PT LEFT FLOOR IN STABLE CONDITION VIA WHEELCHAIR ACCOMPAINED BY JANNIE RUELAS LPN. ALL BELONGINGS AND DISCHARGE INTRUCTIONS LEFT WITH PT.
== END 2019-10-01 13:00 | disposition home or self-care (01) ==
LOC: ED 20:21 → ED-I 21:33 → ED 21:45 → ED-I 21:46 → MS2 22:07
PROVIDERS: Family Medicine; ADMIT Internal Medicine; ATTEND Internal Medicine
DX: R07.9 Chest pain, unspecified (principal); I25.10 Atherosclerotic heart disease of native coronary artery without angina pectoris; I10 Essential (primary) hypertension; E11.40 Type 2 diabetes mellitus with diabetic neuropathy, unspecified; E78.5 Hyperlipidemia, unspecified; Z79.4 Long term (current) use of insulin; Z95.5 Presence of coronary angioplasty implant and graft; Z20.828 Contact with and (suspected) exposure to other viral communicable diseases; R06.02 Shortness of breath
CPT/HCPCS: G0378

== ENCOUNTER 2019-11-29 13:41 | Emergency (ER) | payer MEDICARE, MEDICAID ==
[~2019-11-29] VITALS: Ht 162.6 cm; Wt 65.0 kg
[2019-11-29 15:05] LABS: HEMATOCRIT 42.8 % (37.0-47.0); HEMOGLOBIN 14.2 g/dl (12.0-16.0); IMMATURE GRANULOCYTES 0.1 % (0.0-5.0); MEAN CELL VOLUME 87.3 fL CALC (80.0-100.0); MEAN CORPUSCULAR HGB CONC 33.2 g/dL CAL (32.0-36.0); NEUT# 4.89 thou/uL (2.00-7.15); RED BLOOD COUNT 4.9 mill/uL (4.20-5.60); RED CELL DISTRI WIDTH 12.8 % (11.5-15.5)
[2019-11-29] MEDS ORDERED: WELLBUTRIN150 M2 PO (15:22)
[2019-11-29 15:23] LABS: ALBUMIN 4.3 g/dL (3.2-5.0); ALKALINE PHOSPHATASE 67 u/l (38-126); ANION GAP 15 (6-22 (CALC)); BUN 22 mg/dL (8-23); BUN/CREATININE RATIO 27 (12-20 (CALC)); CARBON DIOXIDE 25 mmol/l (22-30); CHLORIDE 99 mmol/l (95-108); CREATININE 0.8 mg/dL (0.5-1.0); GFR > 60 ML/MIN (>=60 (CALC)); GFR FOR AFR.AMER. > 60 ML/MIN (>=60 (CALC)); POTASSIUM 3.5 mmol/l (3.5-5.1); SGOT/AST 32 u/l (9-36); SODIUM 136 mmol/l (137-146); TOTAL PROTEIN 7.6 g/dL (6.3-8.2)
[2019-11-29] MEDS ORDERED: ZOLPIDEM10 M1 PO (15:23)
[2019-11-29] MEDS ORDERED: ZYRTEC10 MG PO (15:23)
[2019-11-29] MEDS ORDERED: TRULICITY1.5 MG/0.5 SC (15:24)
[2019-11-29] MEDS ORDERED: TRAZODONE50 MG PO (15:25)
[2019-11-29 15:37] LABS: ACT PARTIAL THROMBO TIME 26.1 SECONDS (20.0-32.5); INTERNATIONAL NORMALIZED RATIO 1.1 RATIO (0.7-1.3); PROTHROMBIN TIME 10.5 SECONDS (9.0-12.5)
[2019-11-29 15:39] LABS: BILIRUBIN, TOTAL 0.7 mg/dL (0.0-1.4)
[2019-11-29 16:31] LABS: URINE BILIRUBIN - DIPSTICK NEGATIVE (NEGATIVE); URINE BLOOD DIPSTICK NEGATIVE (NEGATIVE); URINE COLOR YELLOW; URINE GLUCOSE - DIPSTICK >=1000 mg/dL (NEGATIVE); URINE KETONE TRACE mg/dL (NEGATIVE); URINE LEUK ESTERASE TRACE (NEGATIVE); URINE NITRITE - DIPSTICK NEGATIVE (Negative); URINE PROTEIN - DIPSTICK NEGATIVE (NEG-TRACE); URINE SPECIFIC GRAVITY 1.025; URINE UROBILINOGEN - DIPSTICK 0.2 E.U./dL (0.2)
[2019-11-29] MEDS ORDERED: KEFLEX500 M1 PO ×2 (18:04)
[2019-11-29 19:00] VITALS: BP 141/65
== END 2019-11-29 19:05 | disposition home or self-care (01) ==
LOC: ED 13:41
PROVIDERS: Student in an Organized Health Care Education/Training Program
DX: U07.1 COVID-19 (principal); N39.0 Urinary tract infection, site not specified; E11.9 Type 2 diabetes mellitus without complications; I10 Essential (primary) hypertension; Z95.5 Presence of coronary angioplasty implant and graft; Z79.4 Long term (current) use of insulin

== ENCOUNTER 2020-01-11 12:17 | Observation (INO) | payer MEDICARE, MEDICAID ==
[~2020-01-11] VITALS: Ht 162.6 cm; Wt 75.0 kg
[~2020-01-11 12:17] MED LIST changes: +KEFLEX500 M1 PO; +TRAZODONE50 MG PO; +TRULICITY1.5 MG/0.5 SC; +WELLBUTRIN150 M2 PO; +ZOLPIDEM10 M1 PO; +ZYRTEC10 MG PO
--- NOTE | 2020-01-11 12:17 | NUR ---
PT TO ER ROOM 6 VIA WC FOR BEDSIDE TRIAGE
[2020-01-11 12:56] LABS: HEMATOCRIT 38.2 % (37.0-47.0); IMMATURE GRANULOCYTES 0.2 % (0.0-5.0); MEAN CELL VOLUME 87.4 fL CALC (80.0-100.0); MEAN CORPUSCULAR HGB 27.9 pG CALC (26.0-32.0); MEAN CORPUSCULAR HGB CONC 31.9 g/dL CAL (32.0-36.0); NEUT# 3.72 thou/uL (2.00-7.15); RED BLOOD COUNT 4.37 mill/uL (4.20-5.60); RED CELL DISTRI WIDTH 13.6 % (11.5-15.5)
[2020-01-11 13:03] LABS: HEMOGLOBIN 12.2 g/dl (12.0-16.0)
--- NOTE | 2020-01-11 13:09 | NUR ---
PT RESTING AWAITING LAB RESULTS, NO NEW COMPLAINTS, CALL STATON WITHIN REACH
[2020-01-11 13:54] LABS: ALBUMIN 4.1 g/dL (3.2-5.0); ALKALINE PHOSPHATASE 64 u/l (38-126); ANION GAP 11 (6-22 (CALC)); BILIRUBIN, TOTAL 0.6 mg/dL (0.0-1.4); BUN 12 mg/dL (8-23); BUN/CREATININE RATIO 18 (12-20 (CALC)); CARBON DIOXIDE 27 mmol/l (22-30); CHLORIDE 105 mmol/l (95-108); CREATININE 0.7 mg/dL (0.5-1.0); GFR > 60 ML/MIN (>=60 (CALC)); GFR FOR AFR.AMER. > 60 ML/MIN (>=60 (CALC)); POTASSIUM 3.9 mmol/l (3.5-5.1); SGOT/AST 44 u/l (9-36); SODIUM 139 mmol/l (137-146); TOTAL PROTEIN 7.2 g/dL (6.3-8.2)
[2020-01-11 13:58] LABS: C-REACTIVE PROTEIN 0.6 mg/dL (0-0.9)
[2020-01-11 14:07] LABS: MYOGLOBIN 25 ng/mL (0 - 62)
--- NOTE | 2020-01-11 14:16 | NUR ---
PT RESTING OFFERS NO NEW COMPLAINTS, CALL STATON WITHIN REACH,
--- NOTE | 2020-01-11 14:57 | NUR ---
PT AWARE OF PENDING ADMISSION, NO NEW COMPLAINTS OFFERED, CALL STATON WITHIN REACH.
--- NOTE | 2020-01-11 15:34 | NUR ---
PT REQUESTING FOOD, DIET ORDERED, DIETARY NOTIFIED
--- NOTE | 2020-01-11 15:39 | NUR ---
VISITOR AT BEDSIDE, CALL STATON WITHIN REACH
--- NOTE | 2020-01-11 16:15 | NUR ---
PT ARRIVED FROM ER VIA WC WITH STAFF. HAD TO CHANGE THE ROOM. FROM 283 TO 289 C/O MACHINE BEING TOO LOUD. AND "MY SISTER OF COVID" SHIRLEY RN EXPLAINED "IT IS UP TO HER IF SHE WANTS TO STAY, WE DO HAVE THE PAPER IF SHE WANTS TO LEAVE". PT VERBALIZED UNDERSTANDING.
--- NOTE | 2020-01-11 16:18 | NUR ---
PT TRANSPORTED TO MED SURG VIA WHEELCHAIR WITH TELEMETRY IN PLACE AND ALL BELONINGS WITH PT. UPON ARRIVAL PT VERY ANXIOUS ABOUT BEING IN [facility]. STATES SHE WILL TRY TO STAY, BOTH PT AND SPOUSE AWARE OF NO VISITORS POLICY IN [facility].
--- NOTE | 2020-01-11 16:30 | NUR ---
ASSESSMENT IS COMPLETED: IV SITE IS FREE FROM REDNESS OR EDEMA. HR IS REG,PULSES ARE STRONG X4, ABD IS SOFT WITH ACTIV EBS. BREATH SOUNDS ARE CLEAR,BILATERALLY. TELE MONITOR IN PLACE. PT IS WEEPY AT TIMES. DUE TO NOT WANTING TO BE IN THE ROOM WITHOUT SPOUSE , AND THE MACHINE IS TOO LOUD.,CONITNUE TO OBSERVE AND MONITOR.
[2020-01-11 16:45] VITALS: BP 144/73
--- NOTE | 2020-01-11 16:58 | NUR ---
PT IS "TEARY" INQUIRED WHY SHE CAN'T STAY IN THE ER. EXPLAINED THEY USUALLY DON'T KEEP THEM IN THE ER WHEN THEY ARE ADMITTED. INQUIRED "ARE U AFRAID THAT U WILL GET THE COVID BEING IN THIS AREA" PT STATED" YES" EXPLAINED THAT EVERYONE STAYS IN THEIR ROOM AND DOESN'T WANDER IN THE HALLS". PT JUST SHOOK HER HEAD. CONTINUE TO OSBERVE AND MONITOR. ASKED PT ABOUT HER SISTER. SITER " PASSED IN [place] WITH COVID".
[2020-01-11 18:30] VITALS: BP 136/70
--- NOTE | 2020-01-11 20:35 | NUR ---
PT RESTING IN BED ALERT AND ORIENTED. RESPIRATIONS EVEN AND UNLABORED ON RA. LUNGS SOUND DIMINISHED. PEDAL PULSES ARE STRONG. PT REPORTS HAVING MODERATE PAIN PT TO BE MEDICATED PER EMAR ORDERS. SAFETY PRECAUTIONS IN PLACE. WILL CONTINUE TO MONTOR.
[2020-01-12] VITALS: BP 105/57
--- NOTE | 2020-01-12 00:15 | NUR ---
PT RESTING IN BED, NO S/S OF DISTRESS AT THIS TIME. WILL CONTINUE TO MONITOR.
[2020-01-12 04:00] VITALS: BP 132/41
--- NOTE | 2020-01-12 07:27 | NUR ---
PT SITTING IN BED. A&O. NO DISTRESS NOTED. PT REPORT PAIN TO [facility] 10. PAIN MEDICATION TO BE GIVEN. NO OTHER NEEDS AT THIS TIME. CALL LIGHT IN REACH. CONTINUE TO MONITOR.
[2020-01-12 08:45] VITALS: BP 122/65
--- NOTE | 2020-01-12 08:45 | NUR ---
PT SITTING IN BED. A&O X3. NO DISTRESS NOTED. PT STATES PAIN HAS NOW INCREASED TO 7/10 TO JUDAH CHEST. PT UNDERGOING RECENT STRESSFUL TIME AT HOME DUE TO OF SISTER. STATES THE PAIN COMES AND GOES, DOES NOT STAY CONSTANT. GAVE PT RELAXATION TECHNIQUES TO REDUCE ANXIETY AND STRESS. ASSESSMENT COMPLETED. DISCUSSED POC. CALL LIGHT IN REACH. CONTINUE TO MONITOR.
[2020-01-12 09:35] LABS: CHOLESTEROL HDL RATIO 4.5 (<4.4 (CALC))
[2020-01-12 11:19] VITALS: BP 120/72
--- NOTE | 2020-01-12 14:57 | NUR ---
Discharge instructions given. Patient verbalizes understanding of same. Discharged in stable condition via wheelchair to home accompanied by Stephanie ALVAREZ. All belongings sent with pt.
== END 2020-01-12 15:00 | disposition home or self-care (01) ==
LOC: ED 12:17 → ED-I 14:28 → ED 14:30 → MS2 14:31
PROVIDERS: Emergency Medicine; Nurse Practitioner; ADMIT Internal Medicine; ATTEND Internal Medicine
DX: R07.9 Chest pain, unspecified (principal); I10 Essential (primary) hypertension; K21.9 Gastro-esophageal reflux disease without esophagitis; I25.10 Atherosclerotic heart disease of native coronary artery without angina pectoris; E78.5 Hyperlipidemia, unspecified; E11.40 Type 2 diabetes mellitus with diabetic neuropathy, unspecified; F41.9 Anxiety disorder, unspecified; F32.9 Major depressive disorder, single episode, unspecified; Z79.4 Long term (current) use of insulin; Z95.5 Presence of coronary angioplasty implant and graft; Z63.4 Disappearance and death of family member; Z86.19 Personal history of other infectious and parasitic diseases; Z20.828 Contact with and (suspected) exposure to other viral communicable diseases
CPT/HCPCS: G0378

== ENCOUNTER 2020-06-21 13:18 | Emergency (ER) | payer MEDICARE, MEDICAID ==
[~2020-06-21] VITALS: Ht 162.6 cm; Wt 73.0 kg
[2020-06-21 15:34] LABS: IMMATURE GRANULOCYTES 0.2 % (0.0-5.0); MEAN CELL VOLUME 89.7 fL CALC (80.0-100.0); MEAN CORPUSCULAR HGB 29.9 pG CALC (26.0-32.0); MEAN CORPUSCULAR HGB CONC 33.3 g/dL CAL (32.0-36.0); NEUT# 5.65 thou/uL (2.00-7.15); RED BLOOD COUNT 4.35 mill/uL (4.20-5.60); RED CELL DISTRI WIDTH 13.4 % (11.5-15.5)
[2020-06-21 15:47] LABS: ALBUMIN 4.2 g/dL (3.2-5.0); ALKALINE PHOSPHATASE 63 u/l (38-126); ANION GAP 14 (6-22 (CALC)); BILIRUBIN, TOTAL 0.7 mg/dL (0.0-1.4); BUN 13 mg/dL (8-23); BUN/CREATININE RATIO 20 (12-20 (CALC)); CARBON DIOXIDE 24 mmol/l (22-30); CHLORIDE 103 mmol/l (95-108); CREATININE 0.6 mg/dL (0.5-1.0); GFR > 60 ML/MIN (>=60 (CALC)); GFR FOR AFR.AMER. > 60 ML/MIN (>=60 (CALC)); POTASSIUM 4.2 mmol/l (3.5-5.1); SGOT/AST 33 u/l (9-36); SODIUM 136 mmol/l (137-146); TOTAL PROTEIN 7.3 g/dL (6.3-8.2)
[2020-06-21 17:10] LABS: URINE BILIRUBIN - DIPSTICK NEGATIVE (NEGATIVE); URINE BLOOD DIPSTICK NEGATIVE (NEGATIVE); URINE COLOR YELLOW; URINE GLUCOSE - DIPSTICK >=1000 mg/dL (NEGATIVE); URINE KETONE NEGATIVE (NEGATIVE); URINE LEUK ESTERASE NEGATIVE (NEGATIVE); URINE NITRITE - DIPSTICK NEGATIVE (Negative); URINE PROTEIN - DIPSTICK NEGATIVE (NEG-TRACE); URINE SPECIFIC GRAVITY 1.025; URINE UROBILINOGEN - DIPSTICK 0.2 E.U./dL (0.2)
[2020-06-21 18:03] VITALS: BP 123/69
== END 2020-06-21 17:59 | disposition home or self-care (01) ==
LOC: ED 13:18
PROVIDERS: Student in an Organized Health Care Education/Training Program
DX: S46.812A Strain of other muscles, fascia and tendons at shoulder and upper arm level, left arm, initial encounter (principal); S50.312A Abrasion of left elbow, initial encounter; R42 Dizziness and giddiness; E11.9 Type 2 diabetes mellitus without complications; I10 Essential (primary) hypertension; E78.00 Pure hypercholesterolemia, unspecified; F32.9 Major depressive disorder, single episode, unspecified; W01.0XXA Fall on same level from slipping, tripping and stumbling without subsequent striking against object, initial encounter; Z95.5 Presence of coronary angioplasty implant and graft; Z79.4 Long term (current) use of insulin

== ENCOUNTER 2021-09-06 15:00 | Emergency (ER) | payer MEDICARE, MEDICAID ==
[2021-09-06] VITALS (7 sets, daily range): BP systolic 108–131; BP diastolic 53–69
[~2021-09-06] VITALS: Ht 162.6 cm; Wt 75.9 kg
[2021-09-06 15:35] LABS: HEMATOCRIT 39.4 % (37.0-47.0); HEMOGLOBIN 13.2 g/dl (12.0-16.0); IMMATURE GRANULOCYTES 0.1 % (0.0-5.0); MEAN CELL VOLUME 89.7 fL CALC (80.0-100.0); MEAN CORPUSCULAR HGB 30.1 pG CALC (26.0-32.0); MEAN CORPUSCULAR HGB CONC 33.5 g/dL CAL (32.0-36.0); NEUT# 5.26 thou/uL (2.00-7.15); RED BLOOD COUNT 4.39 mill/uL (4.20-5.60); RED CELL DISTRI WIDTH 13.7 % (11.5-15.5)
[2021-09-06 15:48] LABS: ALBUMIN 4.1 g/dL (3.2-5.0); ALKALINE PHOSPHATASE 59 u/l (38-126); ANION GAP 14 (6-22 (CALC)); BILIRUBIN, TOTAL 0.3 mg/dL (0.0-1.4); BUN 8 mg/dL (8-23); BUN/CREATININE RATIO 12 (12-20 (CALC)); CARBON DIOXIDE 29 mmol/l (22-30); CHLORIDE 105 mmol/l (95-108); CREATININE 0.7 mg/dL (0.5-1.0); GFR > 60 ML/MIN (>=60 (CALC)); GFR FOR AFR.AMER. > 60 ML/MIN (>=60 (CALC)); LIPASE 137 u/l (23-300); SGOT/AST 25 u/l (9-36); SODIUM 144 mmol/l (137-146); TOTAL PROTEIN 7.3 g/dL (6.3-8.2)
[2021-09-06 15:50] LABS: ACT PARTIAL THROMBO TIME 23.7 SECONDS (20.0-32.5); PROTHROMBIN TIME 10.5 SECONDS (9.0-12.5)
[2021-09-06] MEDS ORDERED: TESSALON PERLE100 MG PO (16:39)
[2021-09-06] MEDS ORDERED: ZPAK PO (16:39)
[2021-09-06] MEDS ORDERED: MEDDOSEPAK PO (16:39)
== END 2021-09-06 18:16 | disposition home or self-care (01) ==
LOC: ED 15:00
DX: J45.909 Unspecified asthma, uncomplicated (principal); R07.81 Pleurodynia; I10 Essential (primary) hypertension; E11.9 Type 2 diabetes mellitus without complications; Z95.5 Presence of coronary angioplasty implant and graft; Z79.84 Long term (current) use of oral hypoglycemic drugs; Z79.4 Long term (current) use of insulin; Z20.822 Contact with and (suspected) exposure to COVID-19

== ENCOUNTER 2021-10-02 23:02 | Emergency (ER) | payer MEDICARE, MEDICAID ==
[~2021-10-02] VITALS: Ht 162.6 cm; Wt 75.0 kg
[~2021-10-02 23:02] MED LIST changes: +MEDDOSEPAK PO; +ZPAK PO
[2021-10-02 23:11] VITALS: BP 143/56
[2021-10-02 23:34] LABS: HEMATOCRIT 40.1 % (37.0-47.0); HEMOGLOBIN 13.2 g/dl (12.0-16.0); IMMATURE GRANULOCYTES 0.8 % (0.0-5.0); MEAN CELL VOLUME 90.5 fL CALC (80.0-100.0); MEAN CORPUSCULAR HGB 29.8 pG CALC (26.0-32.0); MEAN CORPUSCULAR HGB CONC 32.9 g/dL CAL (32.0-36.0); NEUT# 4.21 thou/uL (2.00-7.15); RED BLOOD COUNT 4.43 mill/uL (4.20-5.60); RED CELL DISTRI WIDTH 13.3 % (11.5-15.5)
[2021-10-02 23:35] LABS: URINE BILIRUBIN - DIPSTICK NEGATIVE (NEGATIVE); URINE BLOOD DIPSTICK NEGATIVE (NEGATIVE); URINE COLOR YELLOW; URINE GLUCOSE - DIPSTICK >=1000 mg/dL (NEGATIVE); URINE KETONE NEGATIVE (NEGATIVE); URINE LEUK ESTERASE NEGATIVE (NEGATIVE); URINE PROTEIN - DIPSTICK NEGATIVE (NEG-TRACE)
[2021-10-02 23:40] LABS: URINE NITRITE - DIPSTICK NEGATIVE (Negative)
[2021-10-02 23:50] VITALS: BP 127/61
[2021-10-02 23:51] VITALS: BP 118/61
[2021-10-02 23:52] LABS: ALBUMIN 3.8 g/dL (3.2-5.0); ALKALINE PHOSPHATASE 48 u/l (38-126); ANION GAP 13 (6-22 (CALC)); BILIRUBIN, TOTAL 0.4 mg/dL (0.0-1.4); BUN 12 mg/dL (8-23); BUN/CREATININE RATIO 22 (12-20 (CALC)); CARBON DIOXIDE 27 mmol/l (22-30); CHLORIDE 104 mmol/l (95-108); CREATININE 0.6 mg/dL (0.5-1.0); GFR FOR AFR.AMER. > 60 ML/MIN (>=60 (CALC)); GFR OTHER RACES > 60 ML/MIN (>=60 (CALC)); POTASSIUM 4.5 mmol/l (3.5-5.1); SGOT/AST 25 u/l (9-36); SODIUM 139 mmol/l (137-146); TOTAL PROTEIN 6.7 g/dL (6.3-8.2)
[2021-10-03 00:01] VITALS: BP 131/78
[2021-10-03] MEDS ORDERED: NAPROXEN500 MG PO (00:37)
[2021-10-03] MEDS ORDERED: CYCLOBENZAPRINE10 MG PO (00:37)
[2021-10-03 00:39] VITALS: BP 131/78
== END 2021-10-03 01:00 | disposition home or self-care (01) ==
LOC: ED 23:02
PROVIDERS: Emergency Medicine
DX: M47.812 Spondylosis without myelopathy or radiculopathy, cervical region (principal)

== ENCOUNTER 2022-01-23 17:15 | Emergency (ER) | payer MEDICARE, MEDICAID ==
[~2022-01-23] VITALS: Ht 162.6 cm; Wt 75.0 kg
[~2022-01-23 17:15] MED LIST changes: +CYCLOBENZAPRINE10 MG PO; +NAPROXEN500 MG PO
[2022-01-23 17:31] VITALS: BP 140/73
[2022-01-23] MEDS ORDERED: TRESIBA FL100 UNIT/M SC (17:56)
[2022-01-23 18:00] VITALS: BP 116/66
[2022-01-23 18:04] VITALS: BP 116/66
== END 2022-01-23 18:16 | disposition home or self-care (01) ==
LOC: ED 17:15
DX: E11.9 Type 2 diabetes mellitus without complications (principal); I10 Essential (primary) hypertension; E78.00 Pure hypercholesterolemia, unspecified; F32.A Depression, unspecified; Z95.5 Presence of coronary angioplasty implant and graft; Z79.85 Long-term (current) use of injectable non-insulin antidiabetic drugs; Z79.84 Long term (current) use of oral hypoglycemic drugs; Z79.4 Long term (current) use of insulin

== ENCOUNTER 2022-11-15 10:27 | Emergency (ER) | payer MEDICARE, MEDICAID ==
[2022-11-15] VITALS (10 sets, daily range): BP systolic 96–139; BP diastolic 52–70
[~2022-11-15] VITALS: Ht 162.6 cm; Wt 75.7 kg
[~2022-11-15 10:27] MED LIST changes: +TRESIBA FL100 UNIT/M SC
[2022-11-15 11:02] LABS: URINE BILIRUBIN - DIPSTICK NEGATIVE (NEGATIVE); URINE COLOR YELLOW; URINE GLUCOSE - DIPSTICK >=1000 mg/dL (NEGATIVE)
[2022-11-15 11:03] LABS: URINE BLOOD DIPSTICK NEGATIVE (NEGATIVE); URINE KETONE Negative (NEGATIVE); URINE LEUK ESTERASE NEGATIVE (NEGATIVE); URINE NITRITE - DIPSTICK NEGATIVE (Negative); URINE PROTEIN - DIPSTICK NEGATIVE (NEG-TRACE); URINE SPECIFIC GRAVITY <=1.005; URINE UROBILINOGEN - DIPSTICK 0.2 E.U./dL (0.2)
[2022-11-15 11:23] LABS: BASO% 0.3 % (0-3); EOS% 1.6 % (0-8); HEMATOCRIT 42.9 % (37.0-47.0); HEMOGLOBIN 13.9 g/dl (12.0-16.0); IMMATURE GRANULOCYTES 0.1 % (0.0-5.0); LYMPH% 17.5 % (15-41); MEAN CELL VOLUME 86.8 fL CALC (80.0-100.0); MEAN CORPUSCULAR HGB 28.1 pG CALC (26.0-32.0); MEAN CORPUSCULAR HGB CONC 32.4 g/dL CAL (32.0-36.0); MONO% 7.9 % (2-13); NEUT# 8.03 thou/uL (2.00-7.15); NEUT% 72.6 % (42-76); RED BLOOD COUNT 4.94 mill/uL (4.20-5.60); RED CELL DISTRI WIDTH 13.5 % (11.5-15.5)
[2022-11-15 11:40] LABS: ALBUMIN 4.1 g/dL (3.2-5.0); ALKALINE PHOSPHATASE 71 u/l (38-126); ANION GAP 13 (6-22 (CALC)); BILIRUBIN, TOTAL 0.6 mg/dL (0.02-1.3); BUN 15 mg/dL (8-23); BUN/CREATININE RATIO 21 (12-20 (CALC)); CARBON DIOXIDE 25 mmol/l (22-30); CHLORIDE 104 mmol/l (95-108); CREATININE 0.7 mg/dL (0.5-1.0); GFR FOR AFR.AMER. > 60 ML/MIN (>=60 (CALC)); GFR OTHER RACES > 60 ML/MIN (>=60 (CALC)); SGOT/AST 28 u/l (9-36); SODIUM 138 mmol/l (137-146); TOTAL PROTEIN 7.2 g/dL (6.3-8.2)
[2022-11-15 11:44] LABS: POTASSIUM 3.9 mmol/l (3.5-5.1)
[2022-11-15] MEDS ORDERED: NAPROXEN500 MG PO (14:23)
[2022-11-15] MEDS ORDERED: METHOCARBAMOL500 MG PO (14:23)
== END 2022-11-15 14:40 | disposition home or self-care (01) ==
LOC: ED 10:27
PROVIDERS: Family Medicine
DX: M54.6 Pain in thoracic spine (principal); I10 Essential (primary) hypertension; E11.9 Type 2 diabetes mellitus without complications; F32.A Depression, unspecified; Z95.5 Presence of coronary angioplasty implant and graft; Z79.84 Long term (current) use of oral hypoglycemic drugs; Z79.4 Long term (current) use of insulin

== ENCOUNTER 2023-11-01 16:24 | Emergency (ER) | payer MEDICARE, MEDICAID ==
[2023-11-01] VITALS (10 sets, daily range): BP systolic 108–137; BP diastolic 44–73
[~2023-11-01] VITALS: Ht 162.6 cm; Wt 72.0 kg
[~2023-11-01 16:24] MED LIST changes: +BACLOFEN20 MG PO; +BENZONATATE200 MG PO; +LEVOFLOXACIN750 MG PO; +METHOCARBAMOL500 MG PO; +NABUMETONE750 MG PO; +ONDANSETRON4 MG PO; +PERCOCET 5/321 COMBO PO
[2023-11-01] MEDS ORDERED: KETOROLAC TROMETHAMINE 30 MG/ML SDV IM ONE (16:45)
[2023-11-01] MEDS ORDERED: ORPHENADRINE CITRATE 30 MG/ML AMP IM ONE (16:45)
[2023-11-01] MEDS ORDERED: METHOCARBAMOL 500 MG/TAB PO ONE (17:00)
[2023-11-01] MEDS ORDERED: NAPROXEN500 MG PO (18:36)
[2023-11-01] MEDS ORDERED: FLEXERIL5 M1 PO (18:36)
== END 2023-11-01 18:58 | disposition home or self-care (01) ==
LOC: ED 16:24
DX: M43.6 Torticollis (principal); I10 Essential (primary) hypertension; E11.9 Type 2 diabetes mellitus without complications; E78.5 Hyperlipidemia, unspecified; Z95.5 Presence of coronary angioplasty implant and graft; Z79.84 Long term (current) use of oral hypoglycemic drugs; Z79.4 Long term (current) use of insulin

== ENCOUNTER 2024-06-28 23:09 | Emergency (ER) | payer MEDICARE, MEDICAID ==
[~2024-06-28] VITALS: Ht 162.6 cm; Wt 71.0 kg
[2024-06-29] MEDS ORDERED: MORPHINE SULFATE 4 MG/ML VIAL IV ONE (00:30)
[2024-06-29 00:58] LABS: BASO% 0.4 % (0-3); HEMATOCRIT 42.3 % (37.0-47.0); HEMOGLOBIN 14.4 g/dl (12.0-16.0); IMMATURE GRANULOCYTES 0.2 % (0.0-5.0); LYMPH% 26.6 % (15-41); MEAN CELL VOLUME 90.8 fL CALC (80.0-100.0); MEAN CORPUSCULAR HGB 30.9 pG CALC (26.0-32.0); MONO% 8.1 % (2-13); NEUT# 6.54 thou/uL (2.00-7.15); NEUT% 62.7 % (42-76); RED BLOOD COUNT 4.66 mill/uL (4.20-5.60); RED CELL DISTRI WIDTH 13.1 % (11.5-15.5)
[2024-06-29 01:29] LABS: ALBUMIN 4.1 g/dL (3.2-5.0); BILIRUBIN, TOTAL 0.6 mg/dL (0.02-1.3); CREATININE 0.7 mg/dL (0.5-1.0); POTASSIUM 3.8 mmol/l (3.5-5.1); TOTAL PROTEIN 6.8 g/dL (6.3-8.2)
[2024-06-29 01:36] LABS: ACT PARTIAL THROMBO TIME 25.4 SECONDS (20.0-32.5)
[2024-06-29 01:45] LABS: D-DIMER < 0.19 mg/L (0.19-0.60)
[2024-06-29] MEDS ORDERED: IBUPROFEN600 MG PO (04:09)
[2024-06-29] MEDS ORDERED: METHOCARBAMOL500 MG PO (04:09)
[2024-06-29] MEDS ORDERED: IBUPROFEN 600 MG/TAB PO ONE (04:10)
[2024-06-29 04:41] VITALS: BP 141/90
== END 2024-06-29 04:41 | disposition home or self-care (01) ==
LOC: ED 23:09
PROVIDERS: Emergency Medicine
DX: M62.830 Muscle spasm of back (principal); E11.9 Type 2 diabetes mellitus without complications; I10 Essential (primary) hypertension; E78.00 Pure hypercholesterolemia, unspecified; F32.A Depression, unspecified; Z95.5 Presence of coronary angioplasty implant and graft; Z79.4 Long term (current) use of insulin; Z79.84 Long term (current) use of oral hypoglycemic drugs
CPT/HCPCS: Q9967